=== PATIENT | female | born 1980 | race African-American/Black ===

== ENCOUNTER 2018-10-13 14:09 | Emergency (ER) | payer MEDICARE, MEDICAID ==
[~2018-10-13] VITALS: Ht 167.6 cm; Wt 114.0 kg
[~2018-10-13 14:09] MED LIST: CHOL100011 PO; DIME240C PO; ELET20TA PO; HYDR-3245 PO; OMEP-110 PO; ONDA4TAB13 PO; PROM25TA10 PO
[2018-10-13 14:11] VITALS: BP 153/103
== END 2018-10-13 15:37 | disposition home or self-care (01) ==
LOC: ED 15:30
DX: G89.11 Acute pain due to trauma (principal); M79.671 Pain in right foot; F41.1 Generalized anxiety disorder; W01.0XXA Fall on same level from slipping, tripping and stumbling without subsequent striking against object, initial encounter; Y93.89 Activity, other specified; Y92.009 Unspecified place in unspecified non-institutional (private) residence as the place of occurrence of the external cause; Y99.8 Other external cause status
CPT/HCPCS: 99284

== ENCOUNTER 2019-03-30 23:48 | Emergency (ER) | payer MEDICAID, MEDICARE ==
[~2019-03-30] VITALS: Ht 167.6 cm; Wt 115.0 kg
[2019-03-30 23:54] VITALS: BP 139/83
--- NOTE | 2019-03-31 00:09 | NUR ---
BRANNON SALOMON AT TRIAGE FOR EVAL
[2019-03-31] MEDS ORDERED: TRIAMCINOLONE ACETONIDE 40 MG/ML, 1ML IM ONE (00:30)
--- NOTE | 2019-03-31 00:50 | NUR ---
PT MEDICATED PER EMAR WITH KENALOG 40MG IM TO RIGHT DELTOID. PT TOLERATED WELL. UPDATED ON POC.
== END 2019-03-31 01:21 | disposition home or self-care (01) ==
LOC: ED 03-31 01:10
DX: R20.8 Other disturbances of skin sensation (principal); G43.909 Migraine, unspecified, not intractable, without status migrainosus; G35 Multiple sclerosis
CPT/HCPCS: 96372; 99283; J3301